=== PATIENT | male | born 1990 | race Two or more races ===

== ENCOUNTER 2023-05-01 06:44 | Emergency (ER) | payer MEDICAID ==
[~2023-05-01] VITALS: Ht 180.3 cm; Wt 102.8 kg
[2023-05-01 07:05] VITALS: BP 142/88; PULSE 74; RESP 16; O2SAT 97
[2023-05-01] MEDS ORDERED: IBUP1TAB5 PO ×2 (08:06→09:29)
[2023-05-01] MEDS ORDERED: CYCL-839 PO (09:30)
== END 2023-05-01 09:38 | disposition home or self-care (01) ==
LOC: ER 06:44
DX: G44.209 Tension-type headache, unspecified, not intractable (principal)
CPT/HCPCS: 70450; 72040

== ENCOUNTER 2024-10-04 08:18 | Emergency (ER) | payer MEDICAID ==
[~2024-10-04] VITALS: Ht 180.3 cm; Wt 112.9 kg
[~2024-10-04 08:18] MED LIST: CYCL-839 PO; IBUP1TAB5 PO
--- NOTE | 2024-10-04 08:42 | ED.PDOC ---
HPI Comments 33 y/o M, with no prior medical history presents to the ED for CC of chest pain. Patient states, that he has been experiencing intermittent left sided chest pain that radiates to his right chest and down to his back x1week. Patient describes, chest pain to be pressure like in nature. Patient denies nausea, vomiting, palpitations, dizziness, or blurred vision. No other associated symptoms, modifiers, recent injuries or sick contacts present at this time. Chief Complaint: Chest Pain Time Seen by MD: 08:30 Reviewed Notes: Nurses Notes, Medications, Allergies Allergies: Coded Allergies: NO KNOWN ALLERGIES (Unverified , 05/01/23) Home Meds Active Scripts Cyclobenzaprine Hcl (Cyclobenzaprine Hcl) 10 Mg Tab, 10 MG PO TIDP PRN for 10 Days, #30 TAB Prov:NATHALIE POWELL NP 05/01/23 Ibuprofen Micronized (Ibuprofen) 600 Mg Tab, 600 MG PO Q6HPRN PRN for 10 Days, #40 TAB Prov:NATHALIE POWELL NP 05/01/23 Ibuprofen Micronized (Ibuprofen) 600 Mg Tab, 600 MG PO Q6HPRN PRN for 5 Days, #20 TAB Prov:NATHALIE POWELL NP 05/01/23 Information Source: Patient Mode of Arrival: Ambulatory Severity: Moderate Timing: Weeks Duration: Since onset Prehospital treatment: None Location: Chest (R), Chest (L) Radiation: Back Quality: Pressure Onset: At Rest Cardiac Risk Factors: None PE Risk Factors: None History of: None Modifying Factors: Nothing Associated Signs and Symptoms: None Past Medical History PAST MEDICAL HISTORY: Denies Surgical History: Denies all surgeries Family History Family History: Reviewed,noncontributory to illness Social History Smoker: Non-Smoker Alcohol: Denies ETOH Use Drugs: Denies Drug Use Lives In: Home Constitutional: denies: chills, diaphoresis, fatigue, fever, malaise, sweats, weakness, others EENTM: denies: blurred vision, double vision, ear bleeding, ear discharge, ear drainage, ear pain, ear ringing, eye pain, eye redness, hearing loss, mouth pain, mouth swelling, nasal discharge, nose bleeding, nose congestion, nose pain, photophobia, tearing, throat pain, throat swelling, voice changes, others Respiratory: denies: cough, hemoptysis, orthopnea, SOB at rest, shortness of breath, SOB with excertion, stridor, wheezing, others Cardiovascular: reports: chest pain; denies: dizzy spells, diaphoresis, Dyspnea on exertion, edema, irregular heart beat, left arm pain, lightheadedness, palpitations, PND, syncope, others Gastrointestinal: denies: abdomen distended, abdominal pain, blood streaked bowels, constipated, diarrhea, dysphagia, difficulty swallowing, hematemesis, melena, nausea, poor appetite, poor fluid intake, rectal bleeding, rectal pain, vomiting, others Genitourinary: denies: burning, dysuria, flank pain, frequency, hematuria, incontinence, penile discharge, penile sore, pain, testicle pain, testicle swelling, urgency, others Neurological: denies: dizziness, fainting, headache, left sided numbness, left sided weakness, numbness, paresthesia, pre-existing deficit, right sided numbness, right sided weakness, seizure, speech problems, tingling, tremors, weakness, others Musculoskeletal: denies: back pain, gout, joint pain, joint swelling, muscle pain, muscle stiffness, neck pain, others Integumetry: denies: bruises, change in color, change in hair/nails, dryness, laceration, lesions, lumps, rash, wounds, others Allergic/Immunocompromised: denies: Difficulty Healing, Frequent Infections, Hives, Itching, others Hematologic/Lymphatic: denies: anemia, blood clots, easy bleeding, easy bruising, swollen glands, others Endocrine: denies: excessive hunger, excessive sweating, excessive thirst, excessive urination, flushing, intolerance to cold, intolerance to heat, unexplained weight gain, unexplained weight loss, others Psychiatric: denies: anxiety, bipolar disorder, depression, hopeless, panic disorder, schizophrenia, sleepless, suicidal, others All Other Systems: Reviewed and Negative Physical Exam General Appearance: Moderate Distress HEENT: Normal ENT Inspection, Pharynx Normal, TMs Normal Neck: Full Range of Motion, Non-Tender, Normal, Normal Inspection Respiratory: Chest Non-Tender, Lungs Clear, No Accessory Muscle Use, No Respiratory Distress, Normal Breath Sounds Cardiovascular: No Edema, No JVD, No Murmur, No Gallop, Normal Peripheral Pulses, Regular Rate/Rhythm Breast Exam: Deferred Gastrointestinal: No Organomegaly, Non Tender, No Pulsatile Mass, Normal Bowel Sounds, Soft Genitalia: Deferred Pelvic: Deferred Rectal: Deferred Extremities: No calf tenderness, Normal capillary refill, Normal inspection, Normal range of motion, Non-tender, No pedal edema Musculoskeletal : Apperance: Normal Neurologic: Alert, 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 Was a procedure done?: No CP Differential Dx Differential Diagnosis: A-fib, A-Flutter, Angina, Anxiety / Panic Attack, Atrial Dysrhythmia, Electrolyte Disorder Differential Diagnosis: Chest Wall Pain, Costochondritis, Pneumonia X-Ray, Labs, Meds, VS Vital Signs Date Time Temp Pulse Resp B/P (MAP) Pulse Ox O2 Delivery O2 Flow Rate FiO2 10/04/24 09:14 98.9 10/04/24 08:42 73 10/04/24 08:25 97.6 66 21 149/90 (109) 98 97.6 10/04/24 08:23 73 Lab Test 10/04/24 09:43 10/04/24 08:29 Range/Units Troponin I High Sensitivity Pending < 3 L </=54 ng/L Current Medications Medications (Trade) Dose Ordered Sig/Anatoliy Route Start Time Stop Time Status Last Admin Ibuprofen (Motrin Tablet) 800 mg ONCE ONCE PO 10/04/24 08:45 10/04/24 08:46 DC 10/04/24 09:14 Patient alert. Complaining of chest discomfort. Vitals stable. Answering questions. EKG reviewed does not show any acute changes. He is comfortable. No leg swelling. No shortness a breath. He is not anemic. No sign of sepsis. Ambulating without difficulty. Good muscle strength. Reviewed his history. No risk factors for coronary artery disease. Was given Motrin. Explained to the patient. Was told to follow up with his primary care physician. Was told to come back if there is any problem. Time of 1ST Reevaluation: 09:00 Reevaluation 1ST: Unchanged Patient Education/Counseling: Diagnosis, Treatment Family Education/Counseling: No Family Present Departure 1 Departure Time of Disposition: 08:56 Impression: Primary Impression: Musculoskeletal chest pain Disposition: 01 HOME / SELF CARE / HOMELESS Condition: Good Discharged With: Self Critical Care Note Critical Care Time?: No Stability Stability form required: No Heart Score Heart Score: Heart Score Response (Comments) Value History N/A 0 EKG Normal 0 Age <45 0 Risk Factors No known risk factors 0 Troponin Normal limit 0 Total 0 I personally scribed for KEISHA HARRISON MD ([email or web address]) on 10/04/24 at 08:42. Electronically submitted by Demetrice Trevizo ([email or web address]). KEISHA HARRISON MD Oct 04, 2024 08:42
[2024-10-04] MEDS: IBUPROFEN 800 MG TAB PO ONE (09:14)
[2024-10-04 10:37] VITALS: BP 138/77; PULSE 71; RESP 17; O2SAT 97
[2024-10-04 10:40] VITALS: TEMP 98.1
--- NOTE | 2024-10-05 08:20 | ECG ---
[facility] Test Date: 2024-10-04 Test Time: 08:25:23 Pat Name: SHANNAN GONZALEZ Department: ER Room: Gender: M Spinning Machine Operator: RUBÉN : 1990 Requested By: KEISHA HARRISON Order Number: [id number] Reading MD: Rafa Crane Measurements Intervals [place] Rate: 73 P: 25 [place]: 134 QRS: 37 QRSD: 101 T: 29 QT: 389 QTc: 429 Interpretive Statements Sinus rhythm Baseline wander in lead(s) V3 Electronically Signed On 10-05-2024 13:44:20 PDT by Rafa Crane Please click the below link to view image of tracing.
== END 2024-10-04 10:41 | disposition home or self-care (01) ==
LOC: ER 08:18
DX: R07.89 Other chest pain (principal); Z79.899 Other long term (current) drug therapy
CPT/HCPCS: 36415; 84484; 93005

== ENCOUNTER 2025-05-01 11:04 | Emergency (ER) | payer MEDICAID ==
[~2025-05-01] VITALS: Ht 182.9 cm; Wt 114.0 kg
--- NOTE | 2025-05-01 12:17 | ED.PDOC ---
History of Present Illness HPI Comments 34-year-old male who is Gabonese-speaking presents to the ER with the chief complaint of N/V. Patient reports on having fever, chills, full body pain, N/V/D and cough for the past two days, and has been taking [id number] medications with no relief. Patient notes on taking 600 mg of ibuprofen this morning before arrival to the ED. Denies any other symptoms at this time. Denies chills, fever, SOB, CP. No other associated symptoms, modifiers, recent injuries or sick contacts present at this time. Chief Complaint: Nausea/Vomiting Time Seen by MD: 12:15 Reviewed Notes: Nurses Notes, Medications, Allergies Allergies: Coded Allergies: NO KNOWN ALLERGIES (Unverified , 05/01/23) Home Meds Active Scripts Cyclobenzaprine Hcl (Cyclobenzaprine Hcl) 10 Mg Tab, 10 MG PO TIDP PRN for 10 Days, #30 TAB Prov:NATHALIE POWELL NP 05/01/23 Ibuprofen Micronized (Ibuprofen) 600 Mg Tab, 600 MG PO Q6HPRN PRN for 10 Days, #40 TAB Prov:NATHALIE POWELL NP 05/01/23 Ibuprofen Micronized (Ibuprofen) 600 Mg Tab, 600 MG PO Q6HPRN PRN for 5 Days, #20 TAB Prov:NATHALIE POWELL NP 05/01/23 Information Source: Patient Mode of Arrival: Ambulatory Severity: Moderate Timing: Hours Duration: Since onset, Hours Prehospital treatment: None Past Medical History PAST MEDICAL HISTORY: Denies Surgical History: Denies all surgeries Family History Family History: Reviewed,noncontributory to illness, Unknown Social History Smoker: Non-Smoker Alcohol: Denies ETOH Use Drugs: Denies Drug Use Lives In: Home Constitutional: reports: chills, fever, others (Full body pain); denies: diaphoresis, fatigue, malaise, sweats, weakness EENTM: denies: blurred vision, double vision, ear bleeding, ear discharge, ear drainage, ear pain, ear ringing, eye pain, eye redness, hearing loss, mouth pain, mouth swelling, nasal discharge, nose bleeding, nose congestion, nose pain, photophobia, tearing, throat pain, throat swelling, voice changes, others Respiratory: denies: cough, hemoptysis, orthopnea, SOB at rest, shortness of breath, SOB with excertion, stridor, wheezing, others Cardiovascular: denies: chest pain, dizzy spells, diaphoresis, Dyspnea on exertion, edema, irregular heart beat, left arm pain, lightheadedness, palpitations, PND, syncope, others Gastrointestinal: reports: diarrhea, nausea, vomiting; denies: abdomen distended, abdominal pain, blood streaked bowels, constipated, dysphagia, difficulty swallowing, hematemesis, melena, poor appetite, poor fluid intake, rectal bleeding, rectal pain, others Genitourinary: denies: burning, dysuria, flank pain, frequency, hematuria, incontinence, penile discharge, penile sore, pain, testicle pain, testicle swelling, urgency, others Neurological: denies: dizziness, fainting, headache, left sided numbness, left sided weakness, numbness, paresthesia, pre-existing deficit, right sided numbness, right sided weakness, seizure, speech problems, tingling, tremors, weakness, others Musculoskeletal: denies: back pain, gout, joint pain, joint swelling, muscle pain, muscle stiffness, neck pain, others Integumetry: denies: bruises, change in color, change in hair/nails, dryness, laceration, lesions, lumps, rash, wounds, others Allergic/Immunocompromised: denies: Difficulty Healing, Frequent Infections, Hives, Itching, others Hematologic/Lymphatic: denies: anemia, blood clots, easy bleeding, easy bruising, swollen glands, others Endocrine: denies: excessive hunger, excessive sweating, excessive thirst, excessive urination, flushing, intolerance to cold, intolerance to heat, unexplained weight gain, unexplained weight loss, others Psychiatric: denies: anxiety, bipolar disorder, depression, hopeless, panic disorder, schizophrenia, sleepless, suicidal, others All Other Systems: Reviewed and Negative Physical Exam General Appearance: No Apparent Distress, Normal HEENT: Normal ENT Inspection, Pharynx Normal, TMs Normal Neck: Full Range of Motion, Non-Tender, Normal, Normal Inspection Respiratory: Chest Non-Tender, Lungs Clear, No Accessory Muscle Use, No Respiratory Distress, Normal Breath Sounds Cardiovascular: No Edema, No JVD, No Murmur, No Gallop, Normal Peripheral Pulses, Regular Rate/Rhythm Breast Exam: Deferred Gastrointestinal: No Organomegaly, Non Tender, No Pulsatile Mass, Normal Bowel Sounds, Soft Genitalia: Deferred Pelvic: Deferred Rectal: Deferred Extremities: No calf tenderness, Normal capillary refill, Normal inspection, Normal range of motion, Non-tender, No pedal edema Musculoskeletal : Apperance: Normal Neurologic: Alert, 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 Was a procedure done?: No Differential Dx Considerations may include: Influenza, COVID, urinary tract infection, upper respiratory infection, pneumonia X-Ray, Labs, Meds, VS Vital Signs Date Time Temp Pulse Resp B/P (MAP) Pulse Ox O2 Delivery O2 Flow Rate FiO2 05/01/25 13:04 101.7 05/01/25 12:49 137 16 98 Room Air* 0 21 05/01/25 12:49 101.7 137 16 124/92 (103) 98 101.7 05/01/25 11:05 98.9 133 18 141/94 97 98.9 Lab Test 05/01/25 13:57 05/01/25 13:56 Range/Units White Blood Count 11.4 H 4.4-10.8 10^3/uL Red Blood Count 5.90 4.5-5.90 10^6/uL Hemoglobin 17.4 13.5-17.5 g/dL Hematocrit 50.5 41.0-53.0 % Mean Corpuscular Volume 85.7 80.0-100.0 fL Mean Corpuscular Hemoglobin 29.5 28.0-32.0 pg Mean Corpuscular Hemoglobin Concent 34.5 32.0-36.0 g/dL Red Cell Distribution Width 13.1 11.8-14.3 % Platelet Count 135 L 140-450 10^3/uL Mean Platelet Volume 10.5 6.9-10.8 fL Neutrophils (%) (Auto) 88.9 H 37.0-80.0 % Lymphocytes (%) (Auto) 3.7 L 10.0-50.0 % Monocytes (%) (Auto) 7.3 0.0-12.0 % Eosinophils (%) (Auto) 0.0 0.0-7.0 % Basophils (%) (Auto) 0.1 0.0-2.0 % Neutrophils # (Auto) 10.1 H 1.6-8.6 10 ^3/uL Lymphocytes # (Auto) 0.4 0.4-5.4 10 ^3/uL Monocytes # (Auto) 0.8 0-1.3 10 ^3/uL Eosinophils # (Auto) 0 0-0.8 10 ^3/uL Basophils # (Auto) 0 0-0.2 10 ^3/uL Nucleated Red Blood Cells 0.6 % Sodium Level 138 136-145 mmol/L Potassium Level 4.1 3.5-5.1 mmol/L Chloride Level 101 98-107 mmol/L Carbon Dioxide Level 25 20-31 mmol/L Anion Gap 12 5-15 Blood Urea Nitrogen 13 9-23 mg/dL Creatinine 1.00 0.700-1.30 mg/dL Glomerular Filtration Rate Calc 100 >90 mL/min BUN/Creatinine Ratio 13.0 10.0-20.0 Serum Glucose 104 74-106 mg/dL Lactic Acid Level 1.4 0.4-2.0 mmol/L Calcium Level 9.5 8.7-10.4 mg/dL Total Bilirubin 1.5 H 0.2-1.0 mg/dL Aspartate Amino Transferase (AST) 39 13-40 U/L Alanine Aminotransferase (ALT) 64 H 7-40 U/L Alkaline Phosphatase 81 46-116 U/L Total Protein 8.1 5.7-8.2 g/dL Albumin 4.8 3.2-4.8 g/dL Influenza Type A Antigen Negative Negative Influenza Type B Antigen Negative Negative SARS-CoV-2 Antigen (Rapid) Negative NEGATIVE Current Medications Medications (Trade) Dose Ordered Sig/Anatoliy Route Start Time Stop Time Status Last Admin Ondansetron HCl (Zofran Po) 8 mg ONCE ONCE PO 05/01/25 12:30 05/01/25 12:31 DC 05/01/25 12:56 Ketorolac Tromethamine (Toradol Injection) 30 mg ONCE ONCE IM 05/01/25 12:30 05/01/25 12:31 DC 05/01/25 12:59 Acetaminophen (Tylenol Tablet) 1,000 mg ONCE ONCE PO 05/01/25 13:00 05/01/25 13:01 DC 05/01/25 13:04 X-Ray, Labs, Meds, VS Comment Imaging was reviewed by this provider, there is no obvious pathological or acute disease process. Pending radiology review Labs were reviewed by this provider, no abnormalities Vital signs reviewed by this provider, clinically stable Time of 1ST Reevaluation: 12:45 Reevaluation 1ST: Unchanged Patient Education/Counseling: Diagnosis, Treatment, Prognosis, Need For Follow Up (Follow up with PCP next available appointment. Return to emergency department if symptoms worsen.) Family Education/Counseling: No Family Present SEPSIS Sepsis Screen Date sepsis recognized/suspect: May 01, 2025 Time Sepsis recognized/suspect: 1108 Recent Procedure: No On Antibiotic Therapy: No Respiratory Rate >20: No Heart Rate >90: No Temp<36 C (96.8 F) or >38.3 C: No SBP <90 or MAP <65 mmHG: No New Acute Mental Status Change: No Is the patient on CPAP, BIPAP,: No Physician Orders Urinalysis (05/01/25 13:29) Blood Culture (05/01/25 13:29) Vital Signs Date Time Temp Pulse Resp B/P (MAP) Pulse Ox O2 Delivery O2 Flow Rate FiO2 05/01/25 13:04 101.7 05/01/25 12:49 137 16 98 Room Air* 0 21 05/01/25 12:49 101.7 137 16 124/92 (103) 98 101.7 05/01/25 11:05 98.9 133 18 141/94 97 98.9 Laboratory Tests Test 05/01/25 13:57 Lactic Acid Level 1.4 mmol/L (0.4-2.0) White Blood Count 11.4 10^3/uL (4.4-10.8) H Medications Medications Dose Ordered Sig/Anatoliy Route Start Time Stop Time Status Last Admin Dose Admin Acetaminophen 1,000 mg ONCE ONCE PO 05/01/25 13:00 05/01/25 13:01 DC 05/01/25 13:04 Ketorolac Tromethamine 30 mg ONCE ONCE IM 05/01/25 12:30 05/01/25 12:31 DC 05/01/25 12:59 Ondansetron HCl 8 mg ONCE ONCE PO 05/01/25 12:30 05/01/25 12:31 DC 05/01/25 12:56 Departure 1 Departure Time of Disposition: 15:38 Impression: Primary Impression: Upper respiratory infection Qualified Codes: J06.9 - Acute upper respiratory infection, unspecified Disposition: HOME / SELF CARE / HOMELESS Condition: Fair e-Prescriptions Promethazine-Dm (Promethazine Dm 6.25-15 mg/5Ml) 1 Marialuisa Marialuisa 5 ML PO TID PRN, #240 ML Prov: ANGIE LEYVA 05/01/25 Ibuprofen Micronized (Ibuprofen) 800 Mg Tab 800 MG PO TID PRN, #40 TAB Prov: ANGIE LEYVA 05/01/25 Azithromycin (Zithromax Z-Brijesh) 250 Mg Tab 250 MG PO DAILY for 5 Days, #5 TAB Prov: ANGIE LEYVA 05/01/25 Discharged With: Self Critical Care Note Critical Care Time?: No Stability Stability form required: No Heart Score Heart Score: Heart Score Response (Comments) Value History N/A 0 EKG N/A 0 Age N/A 0 Risk Factors N/A 0 Troponin N/A 0 Total 0 I personally scribed for ANGIE LEYVA ([email or web address]) on 05/01/25 at 12:17. Electronically submitted by Curry Maddox ([email or web address]). ANGIE LEYVA May 01, 2025 12:17
[2025-05-01 12:49] VITALS: PULSE 137; RESP 16; O2SAT 98
[2025-05-01] MEDS: ONDANSETRON ODT 4 MG TAB PO ONE (12:56)
[2025-05-01] MEDS: KETOROLAC TROMETH 30 MG/ML 1ML VIAL IM ONE (12:59)
[2025-05-01 13:04] VITALS: TEMP 101.7
[2025-05-01] MEDS: ACETAMINOPHEN 325 MG TAB PO ONE (13:04)
[2025-05-01 14:35] LABS: Hematocrit 50.5 % (41.0-53.0); Hemoglobin 17.4 g/dL (13.5-17.5); Mean Corpuscular Hemoglobin 29.5 pg (28.0-32.0); Mean Corpuscular Volume 85.7 fL (80.0-100.0); Nucleated Red Blood Cells % 0.6 %
[2025-05-01 14:41] LABS: COVID19 ANTIGEN SOFIA FIA NEGATIVE (NEGATIVE)
[2025-05-01 15:23] LABS: Albumin 4.8 g/dL (3.2-4.8); Alkaline Phosphatase 81 U/L (46-116); Anion Gap 12 (5-15); BUN/Creatinine Ratio 13.0 (10.0-20.0); Blood Urea Nitrogen 13 mg/dL (9-23); Calcium 9.5 mg/dL (8.7-10.4); Carbon Dioxide 25 mmol/L (20-31); Chloride 101 mmol/L (98-107); Glucose 104 mg/dL (74-106); Potassium 4.1 mmol/L (3.5-5.1); Sodium 138 mmol/L (136-145); Total Protein 8.1 g/dL (5.7-8.2)
[2025-05-01 15:25] LABS: Alanine Aminotransferase 64 U/L (7-40); Bilirubin, Total 1.5 mg/dL (0.2-1.0)
[2025-05-01] MEDS ORDERED: PROM1SOL4 PO (15:40)
[2025-05-01] MEDS ORDERED: AZITTAB PO (15:40)
[2025-05-01] MEDS ORDERED: IBUP-1455 PO (15:40)
[2025-05-01 16:29] VITALS: BP 129/92; PULSE 106; RESP 18; O2SAT 98
== END 2025-05-01 16:31 | disposition home or self-care (01) ==
LOC: ER 11:04
DX: J06.9 Acute upper respiratory infection, unspecified (principal); Z20.822 Contact with and (suspected) exposure to COVID-19
CPT/HCPCS: 36415; 80053; 83605; 85025; 87040; 87426; 87804; 96372; 99283; J1885; Q0162